=== PATIENT | female | born 1985 | race Caucasian/White ===

== ENCOUNTER → 2019-12-03 15:59 | Outpatient (CLI) | payer BC, SELFPAY ==
--- NOTE | ~2019-12-03 | XR_ITS ---
XR lumbar spine 2-3V 12/03/2019 16:23 Indication: Low back pain Procedure: 3 views lumbar spine Comparison: No prior studies for comparison. Findings: There is disc narrowing at L4-5. There is prosthetic disc at L5-S1. There is posterior spin al fusion change at L5-S1. Hardware appears intact. No acute fracture or traumatic malalignment. Sacr al foramen are symmetric. Impression: 1: Mild lumbar spondylosis. Status post fusion at L5-S1. Reviewed, dictated and finalized at location A. Impression: 1: Mild lumbar spondylosis. Status post fusion at L5-S1.
== END ==
PROVIDERS: Visit Provider Neurological Surgery
DX: M54.5 Low back pain (principal); Z98.1 Arthrodesis status; M47.896 Other spondylosis, lumbar region
CPT/HCPCS: 72100

== ENCOUNTER 2020-05-31 16:36 | Outpatient (CLI) | payer BC, SELFPAY ==
--- NOTE | ~2020-05-31 | XR_ITS ---
EXAMINATION: XR lumbar spine 2-3V DATE: 05/31/2020 17:04 INDICATION: Low back pain TECHNIQUE: Anteroposterior and lateral views of the lumbar spine, and cone-down lateral view of the l umbosacral junction were obtained. COMPARISON: 12/03/2019 FINDINGS: Again noted are changes of anterior and posterior fusion and laminectomy at L5-S1. Bone ali gnment is normal. There is no fracture. The L1-2 through L4-5 intervertebral disc spaces are normal. The vertebral body heights are maintained. IMPRESSION: 1. Changes of fusion and laminectomy at L5-S1 without acute osseous abnormality. Reviewed, dictated and finalized at location A. IMPRESSION: 1. Changes of fusion and laminectomy at L5-S1 without acute osseous abnormality .
== END 2020-05-31 16:37 ==
PROVIDERS: PCP Family Medicine; Visit Provider Physician Assistant
DX: M54.9 Dorsalgia, unspecified (principal); Z98.1 Arthrodesis status
CPT/HCPCS: 72100

== ENCOUNTER → 2020-06-30 13:51 | Outpatient (CLI) | payer BC, SELFPAY ==
--- NOTE | ~2020-06-30 | CT_ITS ---
EXAMINATION: CT lumbar spine wo con DATE: 06/30/2020 14:31 INDICATION: Low back pain. TECHNIQUE: Computed tomography (CT) of the lumbar spine was performed without intravenous contrast. A utomated exposure control and iterative reconstruction technique were employed. The dose-length produ ct was 714.77 mGy-cm. COMPARISON: Lumbar spine radiographs 05/31/2020 FINDINGS: There is 3 mm anterolisthesis of L5 on S1. There are changes of anterior fusion procedure a t L5-S1 with interbody devices without bridging bone. There are changes of posterior fusion procedure at L5-S1 with pedicle screws. There are lucencies around the S1 screws, consistent with loosening. V ertebral body heights are normal. There is mildly decreased disc height at L4-L5. The following disc levels are specifically discussed: L1-L2: The disc does not extend beyond the endplate margin. There is mild bilateral facet joint osteo arthritis. There is no neural foraminal stenosis. There is no central canal stenosis. L2-L3: The disc does not extend beyond the endplate margin. There is mild bilateral facet joint osteo arthritis. There is no neural foraminal stenosis. There is no central canal stenosis. L3-L4: The disc is bulging. There is severe bilateral facet joint osteoarthritis. There is mild bilat eral neural foraminal stenosis. There is mild central canal stenosis. L4-L5: The disc is bulging. There is bilateral facet joint hypertrophy. There is mild lateral neural foraminal stenosis. There is mild central canal stenosis. L5-S1: There is no facet joint hypertrophy. There is mild bilateral neural foraminal stenosis. There is no central canal stenosis. IMPRESSION: 1. Anterior fusion procedure at L5-S1 without bridging bone. 2. Posterior fusion procedure at L5-S1 with lucency around the S1 screws, consistent with loosening. 3. Mild lumbar spondylosis. Reviewed, dictated and finalized at location A. 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 Anterior fusion procedure at L5-S1 without bridging bone. 2. Posterior fusion procedure at L5-S1 with lucency around the S1 screws, consi stent with loosening. 3. Mild lumbar spondylosis.
== END ==
PROVIDERS: PCP Physician Assistant; Visit Provider Neurological Surgery
DX: M47.816 Spondylosis without myelopathy or radiculopathy, lumbar region (principal); Z98.1 Arthrodesis status
CPT/HCPCS: 72131

== ENCOUNTER 2020-07-05 06:57 | Outpatient (CLI) | payer BC, SELFPAY ==
--- NOTE | ~2020-07-05 | MR_ITS ---
EXAMINATION: MR cervical spine wo/w con DATE: 07/05/2020 10:09 INDICATION: Multiple sclerosis. TECHNIQUE: Magnetic resonance imaging (MRI) of the cervical spine was performed without and with 13 L MultiHance intravenous contrast. Sequences included sagittal and axial T2-weighted FSE, sagittal STI R FSE, and sagittal and axial T1-weighted FSE. Postcontrast sequences included sagittal and axial T1- weighted FS FSE. COMPARISON: None FINDINGS: There is 7 degrees levocurvature of cervical spine. Vertebral body heights are normal. Ther e is mildly decreased disc height at C4-C5, C5-C6, and C6-C7. The spinal cord signal intensity is nor mal. The following disc levels are specifically discussed: C2-C3: The disc does not extend beyond the endplate margin. There is no uncovertebral joint osteoarth ritis. There is mild right and moderate left facet joint osteoarthritis. There is mild left neural fo raminal stenosis. There is no central canal stenosis. C3-C4: The disc does not extend beyond the endplate margin. There is no uncovertebral joint osteoarth ritis. There is mild right facet joint osteoarthritis. There is no neural foraminal stenosis. There i s no central canal stenosis. C4-C5: The disc is bulging. There is moderate bilateral uncovertebral joint osteoarthritis. There is mild right and moderate left facet joint osteoarthritis. There is moderate right and mild left neural foraminal stenosis. There is mild central canal stenosis. C5-C6: The disc is bulging. There is moderate bilateral uncovertebral joint osteoarthritis. There is moderate bilateral facet joint osteoarthritis. There is mild bilateral neural foraminal stenosis. The re is mild central canal stenosis. C6-C7: The disc is bulging. There is moderate bilateral uncovertebral joint osteoarthritis. There is mild right facet joint osteoarthritis. There is mild bilateral neural foraminal stenosis. There is mi ld central canal stenosis. C7-T1: The disc does not extend beyond the endplate margins. There is no uncovertebral joint osteoart hritis. There is moderate bilateral facet joint osteoarthritis. There is mild bilateral neural forami nal stenosis. There is no central canal stenosis. IMPRESSION: 1. No evidence of multiple sclerosis. 2. Moderate cervical spondylosis. Reviewed, dictated and finalized at location B. 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
--- NOTE | ~2020-07-05 | MR_ITS ---
EXAMINATION: MR brain/brain stem wo/w con DATE: 07/05/2020 10:09 INDICATION: Multiple sclerosis. TECHNIQUE: Magnetic resonance imaging (MRI) of the brain and brainstem was performed without and with 13 mL MultiHance intravenous contrast. Sequences included sagittal and axial T1-weighted FLAIR, axia l T1-weighted FSE, axial diffusion-weighted FS EPI, sagittal T2-weighted FLAIR, axial T2*-weighted GR E, axial T2-weighted FLAIR Propeller, and axial T2-weighted Propeller. Postcontrast sequences include d axial, coronal, and sagittal T1-weighted FSE. Apparent diffusion coefficient (ADC) maps were create d. COMPARISON: None. FINDINGS: There is no intracranial hemorrhage or acute infarction. There are confluent areas of incre ased T2-weighted signal intensity in the periventricular regions of the parietal lobes and posterior frontal lobes. There is increased T2-weighted signal intensity in an area in the left cerebellar whit e matter and left middle cerebellar peduncle. None of the lesions enhance. There are no cortical/subc ortical lesions. The ventricles are normal in size. There is mild mucosal thickening in the ethmoid s inuses. There are mucous retention cysts in the maxillary sinuses. The mastoid air cells are normal. The orbits are normal. IMPRESSION: 1. Mild cerebral and cerebellar white matter disease, consistent with multiple sclerosis. Reviewed, dictated and finalized at location B. DIABETES
[2020-07-05 09:17] LABS: Estimated Glomerular Filt Rate > 60
--- NOTE | 2020-07-06 10:19 | P.NEURO_ITS ---
Neurology EEG Report General Information Date of Study: 07/05/20 TEST eeg DIAGNOSIS memory loss with multiple sclerosis CONDITION OF RECORDING awake drowsy and sleep EEG NUMBER [id number] CLINICAL HISTORY patient reported for about the last year, she has noted cognitive difficulties. she can't remember correct words to use, where she places things and forgets to do things EEG DESCRIPTION basic resting occipital frequency consists of low to medium voltage 8 to 10 hertz per 2nd alpha admixed with low-voltage 15 to 18 hertz per 2nd beta. During drowsiness low-voltage beta activity seen diffusely admixed waxing and waning posterior alpha rhythm bilateral symmetrical sleep activity seen during sleep with normal and symmetrical sleep spindles. Photic stimulation produced normal drive hyperventilation not done non paroxysmal, nonfocal, n onlateralizing. IMPRESSION normal record
== END 2020-07-05 06:58 | disposition home or self-care (01) ==
PROVIDERS: PCP Physician Assistant; Visit Provider Psychiatry & Neurology Neurology
DX: R41.3 Other amnesia (principal); G35 Multiple sclerosis; M47.812 Spondylosis without myelopathy or radiculopathy, cervical region; M47.813 Spondylosis without myelopathy or radiculopathy, cervicothoracic region; M48.02 Spinal stenosis, cervical region; M48.03 Spinal stenosis, cervicothoracic region
CPT/HCPCS: 70553; 72156; 95819; A9577

== ENCOUNTER 2020-07-17 01:18 | Outpatient (CLI) | payer BC, SELFPAY ==
[2020-07-17 23:37] LABS: SARS-CoV-2 RNA PCR Positive
== END 2020-07-17 01:19 | disposition home or self-care (01) ==
LOC: ANHCOVIDDT 01:18
PROVIDERS: PCP Physician Assistant; Visit Provider Psychiatry & Neurology Neurology
DX: U07.1 COVID-19 (principal)
CPT/HCPCS: 87635; C9803; U0003

== ENCOUNTER → 2020-12-08 10:56 | Outpatient (CLI) | payer BC, SELFPAY ==
--- NOTE | ~2020-12-08 | MR_ITS ---
EXAMINATION: MR lumbar spine wo/w con DATE: 12/08/2020 11:56 INDICATION: Low back pain. TECHNIQUE: Magnetic resonance imaging (MRI) of the lumbar spine was performed without and with 13 mL MultiHance intravenous contrast. Sequences included sagittal T2-weighted FSE, sagittal STIR FSE, and sagittal and axial T1-weighted FSE. Postcontrast sequences included axial T2-weighted FSE and axial a nd sagittal T1-weighted FS FSE. COMPARISON: CT lumbar spine 06/30/2020 FINDINGS: There is 4 mm anterolisthesis of L5 on S1. There are changes of anterior fusion procedure a t L5-S1 with interbody devices. The pedicle screws have been removed from L5 and S1. There is mildly decreased disc height at L4-L5. The distal spinal cord signal intensity is normal. The conus medullar is is at T12-L1. The following disc levels are specifically discussed: L1-L2: The disc does not extend beyond the endplate margin. There is mild bilateral facet joint osteo arthritis. There is no neural foraminal stenosis. There is no central canal stenosis. L2-L3: The disc does not extend beyond the endplate margin. There is mild bilateral facet joint osteo arthritis. There is no neural foraminal stenosis. There is no central canal stenosis. L3-L4: The disc is mildly bulging. There is severe bilateral facet joint osteoarthritis. There is mil d bilateral neural foraminal stenosis. There is no central canal stenosis. L4-L5: The disc is bulging and has an annular fissure. There is moderate bilateral facet joint osteoa rthritis. There is mild bilateral neural foraminal stenosis. There is mild central canal stenosis. L5-S1: There is no facet joint hypertrophy. There is mild bilateral neural foraminal stenosis. There is no central canal stenosis. IMPRESSION: 1. Mild lumbar spondylosis, stable from 06/30/2020. 2. Anterior fusion procedure at L5-S1. Interval removal of the pedicle screws at L5 and S1. Reviewed, dictated and finalized at location A. IMPRESSION: 1. Mild lumbar spondylosis, stable from 06/30/2020. 2. Anterior fusion procedure at L5-S1. Interval removal of the pedicle screws a t L5 and S1.
[2020-12-08 11:29] LABS: Estimated Glomerular Filt Rate > 60
== END ==
PROVIDERS: PCP Family Medicine; Visit Provider Neurological Surgery
DX: M47.896 Other spondylosis, lumbar region (principal); Z98.1 Arthrodesis status
CPT/HCPCS: 72158; A9577

== ENCOUNTER 2021-01-20 15:31 | Outpatient (CLI) | payer BC, SELFPAY ==
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
== END 2021-01-20 15:32 ==
PROVIDERS: PCP Family Medicine; Visit Provider Physician Assistant
DX: M54.9 Dorsalgia, unspecified (principal); M43.09 Spondylolysis, multiple sites in spine; Z98.1 Arthrodesis status
CPT/HCPCS: 72050; 72072; 72100

== ENCOUNTER → 2021-02-23 08:51 | Outpatient (CLI) | payer BC, SELFPAY ==
--- NOTE | ~2021-02-23 | XR_ITS ---
EXAMINATION:XR_CERV2-3V_CR DATE: 02/23/2021 09:51 INDICATION: Neck pain TECHNIQUE: AP, lateral, and odontoid views of the cervical spine are provided. COMPARISON: 01/20/2021 FINDINGS: Alignment is normal. The odontoid is intact. No fracture is identified. The vertebral body heights are maintained. There is unchanged mild loss of intervertebral disc space height from C4-5 th rough C6-7. Mild multilevel uncovertebral joint osteoarthritis at these levels as well. Moderate mult ilevel facet osteoarthritis is present at several levels. Prevertebral soft tissues are normal. IMPRESSION: 1. Mild cervical spondylosis without acute findings or significant interval change. Reviewed, dictated and finalized at location B. IMPRESSION: 1. Mild cervical spondylosis without acute findings or significant interval romina nge.
--- NOTE | ~2021-02-23 | XR_ITS ---
EXAMINATION: XR lumbar spine 2-3V DATE: 02/23/2021 09:51 INDICATION: Low back pain TECHNIQUE: Anteroposterior and lateral views of the lumbar spine, and cone-down lateral view of the l umbosacral junction were obtained. COMPARISON: 01/20/2021 FINDINGS: There are changes of partial laminectomy at L5 and anterior interbody fusion at L5-S1. Ther e are 4 mm of unchanged anterolisthesis of L5 on S1. The remaining lumbar vertebra are aligned. There is no fracture. There is mild loss of intervertebral disc space height at L4-5. The vertebral body h eights are maintained. IMPRESSION: 1. Surgical changes of the lower lumbar spine without acute findings or significant interval change. Reviewed, dictated and finalized at location B. IMPRESSION: 1. Surgical changes of the lower lumbar spine without acute findings or signifi cant interval change.
== END ==
PROVIDERS: Visit Provider Neurological Surgery
DX: S33.5XXA Sprain of ligaments of lumbar spine, initial encounter (principal); Z98.1 Arthrodesis status; M47.812 Spondylosis without myelopathy or radiculopathy, cervical region
CPT/HCPCS: 72040; 72100

== ENCOUNTER 2021-11-06 03:32 | Emergency (ER) | payer BC, SELFPAY ==
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
[2021-11-06 03:35] VITALS: BP 134/89; PULSE 91; RESP 17; TEMP 36.3; O2SAT 100
[2021-11-06] MEDS: IBUPROFEN 600 MG TABLET PO (04:03)
[2021-11-06] MEDS: TETANUS,DIPHTHERIA,AC PERTUSSIS ADULT (0.5 ML) BOOSTRIX IM (04:06)
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
== END 2021-11-06 05:32 | disposition home or self-care (01) ==
PROVIDERS: Emergency Provider Emergency Medicine; PCP Family Medicine
DX: S02.2XXA Fracture of nasal bones, initial encounter for closed fracture (principal); Z23 Encounter for immunization; Y04.2XXA Assault by strike against or bumped into by another person, initial encounter
CPT/HCPCS: 70486; 90471; 90715; 99284; A9270

== ENCOUNTER 2021-12-06 20:32 | Emergency (ER) | payer BC, SELFPAY ==
--- NOTE | ~2021-12-06 | XR_ITS ---
EXAMINATION: XR chest 2V Exam Date/Time: 12/06/2021 21:30 CDT CLINICAL HISTORY: pleuritic CP,CONGESTION COUGH FEVER,RUNNY NOSE X2 DAYS,NO HX Comparison: None available. RESULT: Lines, tubes, and devices: None. Lungs and pleura: Clear. Cardiomediastinal silhouette: Stable cardiomediastinal silhouette. Other: No acute osseous or upper abdominal finding. IMPRESSION: No acute cardiopulmonary process Reviewed, dictated and finalized at location K.
[2021-12-06 20:35] VITALS: BP 135/93; PULSE 98; RESP 14; TEMP 37.2; O2SAT 99
--- NOTE | 2021-12-06 21:33 | ED.FEVER ---
HPI - Fever General Chief Complaint: Fever <CAMMIE Avalos Last Filed: 12/07/21 02:37> Stated Complaint: fever <CAMMIE Avalos Last Filed: 12/07/21 02:37> Time Seen by Provider: 12/06/21 20:59 <CAMMIE Avalos Last Filed: 12/07/21 02:37> History of Present Illness HPI Narrative: Patient is a 36-year-old female with a history of multiple sclerosis who presents emergency department for 2 days of fever, chills, and cough. Patient states her fever reached 101, and she has been treating her fever with Tylenol. Last dose of Tylenol was taken 4 hours ago. She reports some discomfort in the center of her chest when she coughs, but she describes as a sharp pain that lasts seconds at a time. She denies any shortness of breath, nausea, vomiting, rashes, neck pain, weakness. <CAMIME Avalos Last Filed: 12/07/21 02:37> Related Data Home Medications: Home Medications Medication Instructions Recorded Confirmed bupropion HCl 150 mg PO QAM 07/14/20 07/14/20 dexmethylphenidate 20 mg PO DAILY 07/14/20 07/14/20 vilazodone [Viibryd] 10 mg PO DAILY 07/14/20 07/14/20 <CAMMIE Avalos Last Filed: 12/07/21 02:37> Allergies/Adverse Reactions: Allergies Allergy/AdvReac Type Severity Reaction Status Date / Time Sulfa (Sulfonamide Allergy Mild RASH Verified 11/06/21 03:42 Antibiotics) <CAMMIE Avalos Last Filed: 12/07/21 02:37> Review of Systems Review of Systems: Gen.: Reports fevers or chills Eyes: Denies eye pain or visual change ENT: Reports congestion. Respiratory: Reports cough. Denies shortness of breath CV: Denies chest pain or palpitations GI: Denies abdominal pain nausea, emesis or diarrhea : denies burning, urgency, frequency or hematuria Musculoskeletal: Denies back pain or muscle pain Neuro: Denies numbness, tingling, weakness or focal weakness Skin: Denies rash Except as documented, all other systems reviewed and negative <Britt Wade PA-C - Last Filed: 12/07/21 02:37> [facility] Past Medical History Medical History: Medical History (Updated 12/07/21 @ 00:00 by Nicole Galvan) Patient denies significant medical history <Britt Wade PA-C - Last Filed: 12/07/21 02:37> Social History Social History: Social History (Updated 11/06/21 @ 04:12 by Werner Mclean DO) Smoking status: Never smoker <Britt Wade PA-C - Last Filed: 12/07/21 02:37> Exam Narrative: APPEARANCE: Uncomfortable appearing. Head: normocephalic and atraumatic. EYES: PERRLA/EOMI, conjunctivae clear NOSE: No nasal drainage EARS: External ear normal in appearance. TM clear bilaterally. THROAT: Oropharynx is clear. Mucous membranes are moist. NECK: Supple. No adenopathy, no masses. RESPIRATORY: Airway patent, respirations nonlabored. Clear to auscultation bilaterally, no rales, rhonchi, wheezing. CARDIOVASCULAR: Regular rate and rhythm without murmurs, rubs, or gallops. ABDOMINAL: Normoactive bowel sounds. Soft, nontender, nondistended. No rebound tenderness or guarding. MUSCULOSKELETAL: Reproducible chest pain on palpation of chest. Extremities are warm and well-perfused. Moves all extremities well. No edema. NEURO: Normal speech. No focal neurologic deficits. SKIN:: Skin is warm and dry. No rashes. PSYCHIATRIC: Normal affect/mood. 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 [] <Trevon Velasco DO - Last Filed: 12/07/21 04:43> Vital Signs Vital signs: Vital Signs Temperature 98.9 F 12/06/21 20:35 Pulse Rate 98 12/06/21 20:35 Respiratory Rate 14 12/06/21 20:35 Blood Pressure 135/93 H 12/06/21 20:35 Pulse Oximetry 99 12/06/21 20:35 Temper
[2021-12-06 22:00] VITALS: RESP 20
== END 2021-12-06 22:18 | disposition home or self-care (01) ==
PROVIDERS: Emergency Provider Emergency Medicine; PCP Family Medicine
DX: J10.1 Influenza due to other identified influenza virus with other respiratory manifestations (principal); G35 Multiple sclerosis
CPT/HCPCS: 71046; 87804; 99283

== ENCOUNTER 2023-05-14 15:22 | Outpatient (CLI) | payer BC, SELFPAY ==
--- NOTE | ~2023-05-14 | MR_ITS ---
EXAMINATION: MR lumbar spine wo/w con DATE: 05/14/2023 16:01 INDICATION: Intervertebral disc degeneration. Right-sided low back pain. TECHNIQUE: Magnetic resonance imaging (MRI) of the lumbar spine was performed without and with 13 mL MultiHance intravenous contrast. COMPARISON: Lumbar spine MRI 12/08/2020 FINDINGS: There is 5 mm anterolisthesis of L5 on S1. There is mild chronic anterior wedging of T12 an d L1 vertebral bodies. There are changes of anterior fusion procedure at L5-S1 with interbody devices . There is mildly decreased disc height at L4-L5. The distal spinal cord signal intensity is normal. The conus medullaris is at T12-L1. The following disc levels are specifically discussed: L1-L2: The disc does not extend beyond the endplate margin. There is mild bilateral facet joint osteo arthritis. There is no neural foraminal stenosis. There is no central canal stenosis. L2-L3: The disc is mildly bulging. There is mild bilateral facet joint osteoarthritis. There is mild bilateral neural foraminal stenosis. There is no central canal stenosis. L3-L4: The disc does not extend beyond the endplate margin. There is severe bilateral facet joint ost eoarthritis. There is no neural foraminal stenosis. There is no central canal stenosis. L4-L5: The disc is bulging and has an annular fissure. There is severe bilateral facet joint osteoart hritis. There is mild bilateral neural foraminal stenosis. There is mild central canal stenosis. L5-S1: There is severe bilateral facet joint osteoarthritis. There is moderate right and mild left ne ural foraminal stenosis. There is no central canal stenosis. IMPRESSION: 1. Mild lumbar spondylosis, stable from 12/08/2020. 2. Anterior fusion procedure at L5-S1. Reviewed, dictated and finalized at location E.
== END 2023-05-14 15:23 ==
PROVIDERS: Visit Provider Neurological Surgery
DX: M51.36 Other intervertebral disc degeneration, lumbar region (principal); M47.896 Other spondylosis, lumbar region; Z98.1 Arthrodesis status
CPT/HCPCS: 72158; A9577

== ENCOUNTER 2023-07-02 12:44 | Outpatient (CLI) | payer BC, SELFPAY ==
--- NOTE | ~2023-07-02 | CT_ITS ---
Noncontrast CT scan of the lumbar spine CLINICAL HISTORY: Radiculopathy TECHNIQUE: Axial noncontrast imaging of the lumbar spine was performed. Sagittal and coronal reformat maurizio images were constructed. Dose reduction technique was used on this scan by utilizing automated ex posure control and iterative reconstruction technique. The dose-length product (DLP) was 381.17 mGy-c m. COMPARISON: 06/30/2020 FINDINGS: There is been interval removal of the posterior rods and transpedicular screws from L5 to S 1 level since prior exam. Interbody fusion device at the L5-S1 disc space remains, there is increased lucency about this device, increased irregularity of the surrounding bone. Remaining osseous structu res are intact. No acute fracture evident. Minimal grade 1 anterolisthesis of L5 over S1 noted. Remai baljeet disc spaces are preserved. At L1-L2, L2-L3, L3-L4, there are no significant disc bulges. There are minimal facet joint degenerat maggie changes. No spinal canal stenosis or neural foraminal narrowing at these levels. At L4-L5, there is mild disc bulge with mild to moderate facet arthropathy. No definite central canal stenosis. Neural foramina are preserved. At L5-S1, there is mild disc bulge. No definite canal stenosis. There is probable moderate to advance d bilateral neural foraminal narrowing. Paravertebral soft tissues are unremarkable. Impression: Probable increased lucency and osseous irregularity about the L5-S1 interbody fusion device, suspicio us for loosening, which could indicate delayed or failed fusion. Correlate clinically. Interval removal of transpedicular screws and bilateral rods at the L5-S1 level since prior exam. Moderate degenerative spondylosis at L5-S1, as detailed above. Reviewed, dictated and finalized at location . 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 Correlate clinically. Interval removal of transpedicular screws and bilateral rods at the L5-S1 level since prior exam. Moderate degenerative spondylosis at L5-S1, as detailed above.
== END 2023-07-02 12:45 ==
PROVIDERS: PCP Physician Assistant
DX: M47.26 Other spondylosis with radiculopathy, lumbar region (principal)
CPT/HCPCS: 72131

== ENCOUNTER 2024-07-08 10:05 | Outpatient (CLI) | payer OTHER, SELFPAY ==
--- NOTE | ~2024-07-08 | MR_ITS ---
Procedure: MR lumbar spine wo con Ordering provider: Mckenna ZavalaMD History: . radiculopathy, lumbar region . Comparison: None. Technique: MRI lumbar spine without contrast. FINDINGS: SPINAL CORD: Normal. The cord ends at the level of T12-L1. VERTEBRAL BODIES: Minimal anterolisthesis at the level of L5-S1 otherwise, Normal height and alignmen t. No compression fracture. Normal marrow signal. DISK SPACES: Degenerative disc disease at the level of L5-S1. T12-L1: Normal. Thickened ligamenta flava. L1-L2: Normal. Thickening Ligamenta flava. L2-L3: Mild diffuse disc bulge. Thickening of the ligamenta flava. L3-L4: Mild diffuse disc bulge. Thickening of the ligamenta flava. Bilateral facet joint disease. L4-L5: Mild diffuse disc bulge with annulus tear is seen left posterolaterally. Thickening of the ligamenta flava. L5-S1: Mild diffuse disc bulge. Bilateral nerve root compression with narrowing of the foramina. PARASPINOUS SOFT TISSUES: Normal. IMPRESSION: No compression fracture of the lumbar spine. Minimal anterolisthesis at the level of L5-S1. Degenerative disc disease at the level of L5-S1 with bilateral narrowing of the foramina and the root Reviewed, dictated and finalized at location A. 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
== END 2024-07-08 10:06 | disposition home or self-care (01) ==
LOC: GOSHIMG 10:07
PROVIDERS: PCP Orthopaedic Surgery; Visit Provider Orthopaedic Surgery
DX: M48.07 Spinal stenosis, lumbosacral region (principal); M51.379 Other intervertebral disc degeneration, lumbosacral region without mention of lumbar back pain or lower extremity pain; M54.16 Radiculopathy, lumbar region
CPT/HCPCS: 72148

== ENCOUNTER 2024-07-21 14:42 | Emergency (ER) | payer OTHER, SELFPAY ==
[2024-07-21 14:47] VITALS: BP 109/69; PULSE 74; RESP 16; TEMP 36.8; O2SAT 100
[2024-07-21 15:14] LABS: EDCOVIDSCREEN Negative (Negative); EDINFLUASCREEN Negative (Negative); EDINFLUBSCREEN Negative (Negative)
--- NOTE | 2024-07-21 15:40 | ED_ITS ---
HPI - URI/Sore Throat General Chief Complaint: Upper Respiratory Infection Stated Complaint: headache Time Seen by Provider: 07/21/24 15:40 Source: patient, RN notes reviewed and old records reviewed Mode of arrival: ambulatory Limitations: no limitations History of Present Illness HPI Narrative: patient presents with complaints of feeling unwell upon awakening this morning. She complains of headache, subjective fever, body aches. She reports that she went back to sleep hopping that she would feel better. Did not take any medications for her symptoms prior to going back to bed. She presents with concerns of the flu. Denies cough. Voices no other concerns or complaints at this time Related Data Home Medications Medication Instructions Recorded Confirmed ozanimod 0.92 mg capsule (Zeposia) 0.92 mg PO DAILY 08/03/23 07/21/24 Allergies Allergy/AdvReac Type Severity Reaction Status Date / Time Sulfa (Sulfonamide Allergy Mild RASH Verified 07/21/24 14:48 Antibiotics) Review of Systems Review of Systems: All systems reviewed & are unremarkable except as noted in HPI and below Constitutional: Constitutional: Reports no additional constitutional complaints, Reports body ache(s), Reports fever(s), Reports headache(s) and Reports lethargy ENT: Reports system reviewed and no additional complaints, except as documented Cardiovascular: Cardiovascular: Reports no additional cardiovascular complaints Respiratory: Respiratory: Reports no additional respiratory complaints Gastrointestinal: Gastrointestinal: Reports no additional gastrointestinal complaints [facility] Past Medical History Medical History (Updated 07/21/24 @ 15:50 by Daniela Argueta APRN) Attention deficit disorder Depression Endometriosis Generalized anxiety disorder Lumbar spondylosis Multiple sclerosis Surgical History Surgical History History of section 2017 History of laparoscopy excisional biopsies X3 peritoneal lesions 12/07/2010 History of removal of ovarian cyst 2007 Hx of decompressive lumbar laminectomy L5-S1 decompression laminectomy and fusion 08/04/2019 Family History Family History Grandparent Hypertension Blood disorder Social History Social History Smoking status: Never smoker Alcohol intake: current Alcohol use details: Rarely Comments At the time of my signature, I reviewed and agree with the nursing past medical, surgical, social, and family history. There is no relevant family history pertinent to the patient complaint. Exam Const: General: cooperative, no acute distress, alert and awake Orientation/consciousness: oriented to person, oriented to place and oriented to time HENMT: Head: normal to inspection Resp: Effort & Inspection: normal respiratory effort and able to speak in complete sentences Auscultation: clear to auscultation bilaterally, no crackles, no rales, no rhonchi and no wheezes Cardio: Palpation: normal PMI Rate: regular rate Rhythm: regular rhythm Heart sounds: S1 normal heart sound present and S2 normal heart sound present Neuro: General: oriented to person, oriented to place and oriented to time Cranial nerves: Yes CN's II-XII intact bilaterally Psych: Appearance: grossly normal Thought process: Normal thought process present Insight: Good insight present (Psych) Judgement: Good judgement present (Psych) Course Course Level of Care: Express Care Visit Vital Signs Vital signs: Vital Signs Temperature 98.2 F 07/21/24 14:47 Pulse Rate 74 07/21/24 14:47 Respiratory Rate 16 07/21/24 14:47 Blood Pressure 109/69 07/21/24 14:47 Pulse Oximetry 100 07/21/24 14:47 Oxygen Delivery Room Air 07/21/24 14:47 Temperature 98.2 F 07/21/24 14:47 Pulse Rate 74 07/21/24 14:47 Respiratory Rate 16 07/21/24 14:47 Blood Pressure 109/69 07/21/24 14:47 Pulse Oximetry 100 07/21/24 14:47 Oxygen Delivery Room Air 07/21/24 14:47 Reviewed MDM - URI/Sore Throat MDM Narrative Medical decision making narrative: negative COVID, negative flu. Discussed symptomatic treatment with patient. Follow with primary care provider. Emergency department for new or worse symptoms. Patient to the [facility] appearing is stable for discharge home with supportive care measures. Discharge instructions reviewed with patient, as well as provided in writing per nursing staff. The instructions also include specific and strict return/GO TO THE ER as well as f/u information. All questions have been answered, and the patient deny any further questions with discharge and discharge plan. Some parts of this dictation were generated by voice recognition software and may contain typographical and/or grammatical inaccuracies. Differential Diagnosis Differential diagnosis: Likely upper respiratory infection, sinusitis, viral infection, influenza and pharyngitis Medical Records Attestation: I reviewed the patient's medical records. Lab Data Attestation: I reviewed the patient's lab results. Labs: Lab Results 07/21/24 Range/Units 14:55 POC Influenza A Ag Negative (Negative) POC Influenza B Ag Negative (Negative) POC SARS CoV-2 Ag Negative (Negative) Discharge Plan Discharge Clinical Impression: Viral infection Patient Disposition: Home, Self-Care Condition: Stable Instructions: Antibiotic Form, Cold Symptoms (ED) Additional Instructions: Tylenol and/or ibuprofen per package instructions as needed for fever or pain. Follow-up with primary care provider. Emergency department for new or worse symptoms Patient Language: Indonesian Prescriptions: No Action Zeposia 0.92 mg capsule 0.92 mg PO DAILY Follow-up/Referrals: Jac Hay MD [Primary Care Provider] - 1 Week Stand Alone Forms: Work/School Release IP Time of Disposition: 15:53
== END 2024-07-21 15:53 | disposition home or self-care (01) ==
PROVIDERS: Emergency Provider Nurse Practitioner Family; PCP Family Medicine
DX: B34.9 Viral infection, unspecified (principal); Z20.822 Contact with and (suspected) exposure to COVID-19; N80.9 Endometriosis, unspecified; G35 Multiple sclerosis; M47.816 Spondylosis without myelopathy or radiculopathy, lumbar region
CPT/HCPCS: 87426; 87804; 99212; G0463